=== PATIENT | female | born 1970 | race Caucasian/White ===

== ENCOUNTER 2018-08-07 07:01 | Day surgery (SDC) | payer OTHER ==
[2018-08-07] MEDS: ACETAMINOPHEN 500 MG TAB PO (08:35)
[2018-08-07] MEDS ORDERED: FENTAnyl 50 MCG/ML VIAL (08:37)
[2018-08-07] MEDS ORDERED: LIDOCAINE 2% (SDV) 5 ML INJ (08:37)
[2018-08-07] MEDS ORDERED: MIDAZOLAM 1 MG/ML 2 ML INJ (08:37)
[2018-08-07] MEDS ORDERED: CEFAZOLIN 1 GM INJ (08:37)
[2018-08-07] MEDS ORDERED: PROPOFOL 40 ML (08:37)
[2018-08-07] MEDS ORDERED: morphine (1 MG/ML) 10ML SYRINGE IV ×2 (09:00)
[2018-08-07] MEDS ORDERED: ONDANSETRON 4 MG INJ IV (09:00)
[2018-08-07] MEDS ORDERED: LABETALOL HCL 20MG INJ IV (09:00)
[2018-08-07] MEDS ORDERED: OXYCODONE/ACETAMINOPHEN (5/325) TAB PO ×2 (09:00)
[2018-08-07] MEDS ORDERED: DIPHENHYDRAMINE 50 MG INJ IV (09:00)
[2018-08-07] MEDS ORDERED: FENTAnyl 50 MCG/ML VIAL IV ×2 (09:00)
[2018-08-07] MEDS ORDERED: ALBUTEROL 0.083% (NEB) 2.5 MG/3 ML AMP HHN (09:00)
[2018-08-07] MEDS ORDERED: FAMOTIDINE 20 MG INJ (09:15)
[2018-08-07] MEDS ORDERED: ONDANSETRON 4 MG INJ (09:15)
[2018-08-07] MEDS ORDERED: PHENYLephrine 10 MG INJ (09:16)
[2018-08-07] MEDS: MEPERIDINE 25 MG INJ IV (09:59)
[2018-08-07] MEDS: HYDROmorphONE 1 MG/5 ML IV SYRINGE IV ×3 (10:30→10:40)
[2018-08-07] MEDS: BUPIVACAINE 0.5%/EPI (SDV) 30 ML INJ (11:04)
[2018-08-07] MEDS ORDERED: CEFAZOLIN 2 GM/50 ML (PMX) 50 ML IVPB (12:30)
[2018-08-07] MEDS ORDERED: SOD CHLORIDE 0.9% 1,000 ML IV (12:30)
== END 2018-08-07 12:14 | disposition home or self-care (01) ==
LOC: SDS 07:01
DX: C79.89 Secondary malignant neoplasm of other specified sites (principal); C18.9 Malignant neoplasm of colon, unspecified
CPT/HCPCS: 22901; 88307; 88313